=== PATIENT | female | born 1990 | race Caucasian/White ===

== ENCOUNTER 2021-10-27 09:06 | Outpatient (CLI) | payer OTHER | END 2021-10-27 09:12 | disposition home or self-care (01) | LOC: NUCLEAR 09:06 | PROVIDERS: ATTEND General Practice | DX: I77.1 Stricture of artery (principal) ==

== ENCOUNTER 2022-05-21 11:37 | Emergency (ER) | payer OTHER ==
[~2022-05-21] VITALS: Ht 152.4 cm; Wt 54.4 kg
== END 2022-05-21 18:59 | disposition home or self-care (01) ==
LOC: ER 11:37
DX: R10.84 Generalized abdominal pain (principal)